=== PATIENT | male | born 1985 | race Caucasian/White ===

== ENCOUNTER 2021-10-30 13:04 | Emergency (ER) | payer OTHER ==
[~2021-10-30] VITALS: Ht 180.3 cm; Wt 90.7 kg
[2021-10-30 13:35] VITALS: BP 125/75
--- NOTE | 2021-10-30 15:27 | NUR ---
CALLED [facility] [phone] GAUDENCIO WILL SEND ARMATURE CONNECTOR TO COLLECT PT IN 20 MINS.
--- NOTE | 2021-10-30 15:31 | NUR ---
Patient discharged to home in stable condition. Written and verbal after care instructions given. Patient verbalizes understanding of instruction.
== END 2021-10-30 15:32 | disposition home or self-care (01) ==
LOC: ER 13:34
DX: M20.012 Mallet finger of left finger(s) (principal); Z60.2 Problems related to living alone; W21.01XA Struck by football, initial encounter; Y93.61 Activity, american tackle football; Y92.321 Football field as the place of occurrence of the external cause; Y99.8 Other external cause status
CPT/HCPCS: 73140-TC